=== PATIENT | female | born 1985 | race Native Hawaiian/Other Pacific Islander ===

== ENCOUNTER 2023-07-27 18:24 | Emergency (ER) | payer SELFPAY ==
[2023-07-27 18:36] VITALS: BP 164/96; PULSE 85; RESP 20; TEMP 36.2; O2SAT 99; BMI 30.1
[2023-07-27] MEDS: ONDANSETRON 4 MG/2 ML INJ IV (19:14)
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
[2023-07-27] MEDS: ONDANSETRON 4 MG ODT PREPACK 1 BOTTLE MISC (21:10)
[2023-07-27 21:17] VITALS: BP 141/87; PULSE 77; RESP 18; TEMP 36.8; O2SAT 97
== END 2023-07-27 21:18 | disposition home or self-care (01) ==
PROVIDERS: Emergency Provider Emergency Medicine
DX: S06.0X0A Concussion without loss of consciousness, initial encounter (principal); W22.8XXA Striking against or struck by other objects, initial encounter
CPT/HCPCS: 70450; 96374; 99283; 99284; J2405